=== PATIENT | female | born 1975 | race Caucasian/White ===

== ENCOUNTER → 2017-11-24 | Outpatient (CLI) | payer OTHER | LOC: M RAD 08:49 | DX: Z12.31 Encounter for screening mammogram for malignant neoplasm of breast (principal) | CPT/HCPCS: 77067 ==

== ENCOUNTER → 2019-08-23 | Outpatient (CLI) | payer OTHER ==
--- NOTE | 2019-08-23 09:18 | REPMRS ---
Patient History The patient states she has not had a clinical breast exam in over a year. Family history of breast cancer at age 80 in maternal grandmother, prostate cancer in maternal grandfather. The Jono Tucker lifetime risk for breast cancer is 18.7%. Digital Mammo Diagnostic Bilateral: August 23, 2019 - Exam #: [id number] Bilateral CC and MLO view(s) were taken. Technologist: Jerrica Brownlee, Technologist Prior study comparison: November 24, 2017, bilateral digital mammo screening bilat performed at [facility]. FINDINGS: The breast tissue is extremely dense which could obscure a lesion on mammography. There is no evidence of cancer on this mammogram. Assessment: BI-RADS/ACR category 2 mammogram. Benign Findings. Recommendation Routine screening mammogram of both breasts in 1 year (for women over age 40). This mammogram was interpreted with the aid of an FDA-approved computer-aided dectection system. Electronically Signed By: Young Florez MD 08/23/19 0973
== END ==
LOC: M RAD 08:49
PROVIDERS: ATTEND Physician Assistant
DX: Z12.31 Encounter for screening mammogram for malignant neoplasm of breast (principal)